=== PATIENT | female | born 1955 | race African-American/Black ===

== ENCOUNTER 2020-03-27 12:19 | Emergency (ER) | payer MEDICARE, MEDICAID ==
[~2020-03-27] VITALS: Ht 154.9 cm; Wt 76.0 kg
[2020-03-27 12:23] VITALS: BP 134/80
[2020-03-27] MEDS ORDERED: FAMOTIDINE 20MG TABLET PO ONE (13:45)
[2020-03-27] MEDS ORDERED: GLUCAGON,HUMAN RECOMBINANT 1MG/VIAL IM ONE (13:45)
[2020-03-27 14:57] LABS: BASOPHILS % 1.4 % (0.0-2.0); EOSINOPHILS % 1.5 % (0.0-5.0); HEMATOCRIT. 42.4 % (36.0-48.0); HEMOGLOBIN. 14.3 g/dL (12.0-16.0); LYMPHOCYTES % 31.5 % (20.0-50.0); MEAN CORPUSCULAR HEMOGLOBIN 31.8 pg (28.0-32.0); MEAN CORPUSCULAR VOLUME 93.9 fL (81.0-99.0); MONOCYTES % 6.3 % (2.0-8.0); NEUTROPHILS % 59.3 % (40.0-76.0); PLATELET 300 x1000/uL (130-400); RED BLOOD CELL COUNT 4.51 mill/uL (4.2-5.4); RED CELL DISTRIBUTION WIDTH 14.2 % (11.6-14.6)
[2020-03-27 15:00] LABS: CHLORIDE 107 mEq/L (98-107)
== END 2020-03-27 15:57 | disposition home or self-care (01) ==
LOC: ER 12:40
DX: R13.10 Dysphagia, unspecified (principal); F31.9 Bipolar disorder, unspecified; I10 Essential (primary) hypertension
CPT/HCPCS: 36415; 71045; 80053; 85025; 96372; 99284; J1610

== ENCOUNTER 2021-01-20 05:29 | Emergency (ER) | payer MEDICARE, MEDICAID ==
[~2021-01-20] VITALS: Ht 154.9 cm; Wt 73.0 kg
[2021-01-20 05:39] VITALS: BP 131/78
[2021-01-20] MEDS ORDERED: ACETAMINOPHEN 325MG TABLET PO ONE (06:15)
[2021-01-20] MEDS ORDERED: LIDOCAINE HCL/PF 1% 10 MG/ML 5ML VIAL INFIL ONE (07:15)
[2021-01-20] MEDS ORDERED: TETANUS, DIPHTHERIA, PERTUSSIS VAC/PF 0.5ML (>7YR OLD) IM ONE (07:15)
[2021-01-20] MEDS ORDERED: T3 PO (09:37)
== END 2021-01-20 09:50 | disposition home or self-care (01) ==
LOC: ER 05:29
DX: S01.112A Laceration without foreign body of left eyelid and periocular area, initial encounter (principal); R51.9 Headache, unspecified; M25.512 Pain in left shoulder; Y04.0XXA Assault by unarmed brawl or fight, initial encounter; Y93.89 Activity, other specified; Y92.89 Other specified places as the place of occurrence of the external cause; Y99.8 Other external cause status
CPT/HCPCS: 12011; 70450; 73030; 90471; 90715; 99284; J3490; A4565

== ENCOUNTER 2021-01-22 08:27 | Emergency (ER) | payer MEDICARE, MEDICAID ==
[~2021-01-22] VITALS: Ht 154.9 cm; Wt 7.0 kg
[~2021-01-22 08:27] MED LIST: T3 PO
[2021-01-22 08:29] VITALS: BP 157/76
== END 2021-01-22 09:14 | disposition home or self-care (01) ==
LOC: ER 09:10
DX: S01.01XD Laceration without foreign body of scalp, subsequent encounter (principal); X58.XXXD Exposure to other specified factors, subsequent encounter; I10 Essential (primary) hypertension
CPT/HCPCS: 99281